=== PATIENT | female | born 1990 | race Caucasian/White ===

== ENCOUNTER 2022-07-11 18:56 | Inpatient (IN) | payer MEDICAID, OTHER, SELFPAY ==
[2022-07-11 19:39] VITALS: BMI 18.8
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
[2022-07-11 19:48] VITALS: BP 105/62; PULSE 72; RESP 16; TEMP 36.5; O2SAT 100
[2022-07-11 20:46] LABS: COVID-19 Test Negative (Negative)
[2022-07-11 22:00] VITALS: BP 99/55; PULSE 72; RESP 16; TEMP 37; O2SAT 97
--- NOTE | 2022-07-11 22:35 | MHC.CARE ---
BHN smart sheet completed
[2022-07-11 23:49] VITALS: BP 94/58; PULSE 84; RESP 17; TEMP 36.8; O2SAT 98
[2022-07-12 00:29] LABS: Appearance Urine Clear; Color Urine Yellow; Glucose Urine UA Negative (Negative); Leukocyte Esterase Urine Trace (Negative); Nitrite Urine Negative (Negative); PH 8.5 (5.0-9.0); Specific Gravity - Urine 1.015 (1.005-1.025); UMIC TRIGGER UA YES; Urine Blood Negative (Negative); Urine Ketones Negative (Negative); Urine Protein Negative (Neg-Trace)
[2022-07-12 00:31] LABS: UPreg QC Valid YES; Urine Pregnancy NEGATIVE (NEGATIVE)
[2022-07-12 00:33] VITALS: BP 95/44; PULSE 71; RESP 17; TEMP 36.9; O2SAT 98
[2022-07-12 00:34] LABS: Bacteria Urine None Seen (None Seen); Hyaline Casts Urine 0-2 /LPF (0-2); RBC Urine 0-2 /HPF (0-2); WBC Urine 0-5 /HPF (0-5)
[2022-07-12 00:45] LABS: Amphetamine Screen Urine Not Detected (Not Detect); Barbiturates, Urine Not Detected (Not Detect); Benzodiazepines Screen Urine Not Detected (Not Detect); Cannabinoid Screen Urine Not Detected (Not Detect); Cocaine Screen Urine POSITIVE (Not Detect); Fentanyl, urine Not Detected (Not Detect); Opiate Screen Urine Not Detected (Not Detect); Phencyclidine Screen Urine Not Detected (Not Detect)
--- NOTE | 2022-07-12 01:27 | PC.NURSE ---
Pt. sleeping in room, under no apparent distress.
--- NOTE | 2022-07-12 02:23 | PC.NURSE ---
Spoke Marisol HAND [facility]ING FORMER regarding changing time of Adderal XR to morning meds instead of daily at 0130
[2022-07-12 02:25] VITALS: BP 98/52; PULSE 61; RESP 18; TEMP 36.8; O2SAT 97
[2022-07-12 04:22] VITALS: BP 87/50; PULSE 71; RESP 18; TEMP 36.7; O2SAT 100
--- NOTE | 2022-07-12 05:48 | PC.NURSE ---
Pt. adderal XR was originally ordered for 01:30. Talked to provider about changing order to 09:00 to be given with other medications. Provider ok'd this change. Order was entered in error for 04:57. Med may be given at 09:00. Pt. currently sleeping in bed with 1:1 sitter present.
[2022-07-12 06:26] VITALS: BP 83/40; PULSE 58; RESP 17; TEMP 36.7; O2SAT 99
--- NOTE | 2022-07-12 08:21 | ECG_ITS ---
Test Reason : medical clearance,psych Blood Pressure : / mmHG Vent. Rate : 061 BPM Atrial Rate : 061 BPM P-R Int : 144 ms QRS Dur : 088 ms QT Int : 426 ms P-R-T Axes : 061 020 045 degrees QTc Int : 428 ms Normal sinus rhythm Normal ECG No previous ECGs available Referred By: Marisol Man Electronically Signed By:KATHY GONZALES
[2022-07-12 08:22] VITALS: BP 108/88; PULSE 63; RESP 14; TEMP 36.5; O2SAT 98
[2022-07-12 08:44] LABS: Eos%MD 4.2 %; Hematocrit 41.3 % (37.0-47.0); Hemoglobin 13.7 g/dl (12.0-16.0); Lymph%MD 54.9 %; Mean Corpuscular HGB Conc 33.2 g/dl (31.0-35.0); Mean Corpuscular Hemoglobin 28.7 pg (27.0-33.0); Mean Corpuscular Volume 86.4 fL (80.0-98.0); Mono%MD 6.6 %; Neut%MD 33.3 %; Platelet Count 297 X10*3/uL (160-400); Red Blood Count 4.78 X10*6/uL (4.20-5.50); Red Cell Distribution Width 12.8 % (11.0-16.0); White Blood Count 3.8 X10*3/uL (4.8-10.8)
[2022-07-12] MEDS: Dextroamphetamine/Amphetamine XR 10 MG CAP.ER.24H 30 MG PO (08:49)
[2022-07-12] MEDS: FLUoxetine HCl 10 MG CAPSULE PO (08:50)
[2022-07-12] MEDS: lamoTRIgine 100 MG TABLET PO (08:50)
[2022-07-12] MEDS: Buprenorphine/Naloxone 8/2 mg FILM 1 FILM SUBLINGUAL ×2 (08:50→19:20)
[2022-07-12] MEDS: clonazePAM 0.5 MG TABLET PO ×2 (09:03→16:29)
[2022-07-12 09:07] LABS: Band Neutrophils Percent 0 % (3-5); Eosinophils Absolute Manual 0.1 X10*3/uL (0.0-0.4); Eosinophils Percent Manual 3 % (0-4); Lymphocytes Absolute Manual 2.8 X10*3/uL (1.2-4.9); Lymphocytes Percent Manual 73 % (20-40); Monocytes Absolute Manual 0.1 X10*3/uL (0.1-1.2); Monocytes Percent Manual 3 % (2-11); Neutrophils Absolute Manual 0.8 X10*3/uL (2.0-8.3); Neutrophils Percent Manual 21 % (45-73)
[2022-07-12 09:08] LABS: Platelet Estimate NORMAL (NORMAL); Platelet Morphology Comment NORMAL; RBC Morphology NORMAL; Smudge Cells PRESENT
[2022-07-12 09:30] LABS: Alanine Aminotransferase 11 U/L (0-31); Albumin Level 4.3 g/dL (3.5-5.0); Alkaline Phosphatase 42 U/L (39-117); Anion Gap 16 (12-20); Aspartate Amino Transferase 21 U/L (5-31); Bilirubin Total 0.4 mg/dL (0.0-1.0); Blood Urea Nitrogen 9 mg/dL (9-16); Carbon Dioxide 25 mmol/L (22-29); Chloride 104 mmol/L (96-108); Estimated Glomerular Filt Rate > 60; Glucose Random 59 mg/dL (60-115); Potassium 3.8 mmol/L (3.3-5.1); Sodium 141 mmol/L (135-145); Total Protein 7.7 g/dL (6.5-8.0)
[2022-07-12 09:49] LABS: Glucose, Whole Blood 87 mg/dL (60-115)
[2022-07-12 10:30] LABS: Glucose, Whole Blood 109 mg/dL (60-115)
[2022-07-12] MEDS: Amphetamine Mixed Salts 20 MG TABLET PO (16:29)
[2022-07-12 18:00] VITALS: BP 117/76; PULSE 82; TEMP 36.7; O2SAT 100
[2022-07-12] MEDS: Buprenorphine/Naloxone 8/2 mg TAB.SUBL 1 TAB SUBLINGUAL (19:59)
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
[2022-07-13 06:00] VITALS: BP 110/66; PULSE 72; RESP 16; TEMP 36.5; O2SAT 98
[2022-07-13] MEDS: lamoTRIgine 100 MG TABLET PO (08:08)
[2022-07-13] MEDS: FLUoxetine HCl 10 MG CAPSULE PO (08:08)
[2022-07-13] MEDS: Buprenorphine/Naloxone 8/2 mg FILM 1 FILM SUBLINGUAL ×2 (08:16→17:56)
[2022-07-13] MEDS: clonazePAM 0.5 MG TABLET PO ×3 (08:31→21:53)
[2022-07-13 09:14] LABS: Estimated Average Glucose 100 mg/dL; Hemoglobin A1c % 5.1 %
[2022-07-13 09:20] LABS: Cholesterol 208 mg/dL; HDL Cholesterol 60 mg/dL; LDL Cholesterol Calculated 119 mg/dl; Magnesium 2.2 mg/dL (1.6-2.6); Triglycerides 146 mg/dL
[2022-07-13 09:41] LABS: Free T4 (Free Thyroxine) 1.17 ng/dL (0.71-1.85); Thyroid Stimulating Hormone 1.95 uIU/mL (0.32-4.0)
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
[2022-07-13] MEDS: Dextroamphetamine/Amphetamine XR 10 MG CAP.ER.24H 30 MG PO (10:17)
[2022-07-13 16:27] VITALS: BP 108/65; PULSE 76; RESP 16; TEMP 36.5; O2SAT 99
[2022-07-13] MEDS: Amphetamine Mixed Salts 20 MG TABLET PO (17:15)
[2022-07-13] MEDS: Lithium Carbonate ER 300 MG TABLET.ER PO (21:51)
[2022-07-13] MEDS: Prazosin HCL 1 MG CAPSULE PO (21:51)
[2022-07-14 07:00] VITALS: BMI 19.0
[2022-07-14] MEDS: lamoTRIgine 100 MG TABLET PO (09:06)
[2022-07-14] MEDS: FLUoxetine HCl 20 MG CAPSULE PO (09:07)
[2022-07-14] MEDS: Dextroamphetamine/Amphetamine XR 10 MG CAP.ER.24H 30 MG PO (09:07)
[2022-07-14 09:09] VITALS: BP 110/54; PULSE 70; RESP 16; TEMP 37.2; O2SAT 100
[2022-07-14] MEDS: Buprenorphine/Naloxone 8/2 mg FILM 1 FILM SUBLINGUAL ×2 (09:34→16:45)
[2022-07-14] MEDS: clonazePAM 0.5 MG TABLET PO ×3 (09:52→22:42)
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
[2022-07-14] MEDS: Amphetamine Mixed Salts 20 MG TABLET PO (16:43)
[2022-07-14] MEDS: Lithium Carbonate ER 300 MG TABLET.ER PO (22:43)
[2022-07-14] MEDS: Prazosin HCL 1 MG CAPSULE PO (22:43)
[2022-07-15 06:00] VITALS: BP 103/62; PULSE 82; RESP 16; TEMP 35.8; O2SAT 100
[2022-07-15] MEDS: Dextroamphetamine/Amphetamine XR 10 MG CAP.ER.24H 30 MG PO (09:07)
[2022-07-15] MEDS: FLUoxetine HCl 20 MG CAPSULE PO (09:07)
[2022-07-15] MEDS: lamoTRIgine 100 MG TABLET PO (09:07)
[2022-07-15] MEDS: clonazePAM 0.5 MG TABLET PO (09:31)
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
[2022-07-15] MEDS: Buprenorphine/Naloxone 8/2 mg FILM 1 FILM SUBLINGUAL (11:20)
== END 2022-07-15 13:54 | disposition home or self-care (01) | DRG 755 ==
LOC: HO.ED 07-12 15:07 → HO.PM5 07-12 16:20
PROVIDERS: Nurse Practitioner Family; Registered Nurse; Admitting Provider Psychiatry & Neurology Psychiatry; Emergency Provider Emergency Medicine; PCP Internal Medicine; Visit Provider Psychiatry & Neurology Psychiatry
DX: F43.25 Adjustment disorder with mixed disturbance of emotions and conduct (principal); R45.851 Suicidal ideations; F11.20 Opioid dependence, uncomplicated; F60.3 Borderline personality disorder; F14.10 Cocaine abuse, uncomplicated; F98.8 Other specified behavioral and emotional disorders with onset usually occurring in childhood and adolescence; F43.10 Post-traumatic stress disorder, unspecified; Z20.822 Contact with and (suspected) exposure to COVID-19; Z79.899 Other long term (current) drug therapy
CPT/HCPCS: 36415; 80053; 80061; 80307; 81001; 81025; 82947; 83036; 83735; 84439; 84443; 85007; 85027; 87635; 93005; 99285

== ENCOUNTER 2025-07-15 14:21 | Emergency (ER) | payer OTHER, SELFPAY ==
[2025-07-15 14:28] VITALS: BP 101/48; PULSE 79; RESP 18; TEMP 36.9; O2SAT 96; BMI 23.2
--- NOTE | 2025-07-15 14:40 | ED_ITS ---
HPI - Wound/Laceration General Chief Complaint: Wound/Laceration Stated Complaint: Infection R arm Related Data Home Medications ?Medication ?Instructions ?Recorded ?Confirmed clonazepam 0.5 mg tablet 1 tab PO TID PRN Anxiety 07/11/22 dextroamphetamine-amphetamine 20 1 tab PO DAILY@1400 0 07/11/22 07/12/22 mg tablet dextroamphetamine-amphetamine ER 1 cap PO QAM 07/11/22 07/11/22 30 mg 24hr capsule,extend release (Adderall XR) Previous Rx's ?Medication ?Instructions ?Recorded buprenorphine 8 mg-naloxone 2 mg 2 film sublingual AMAYA LY 3 days #3 07/15/22 sublingual film (Suboxone) ea fluoxetine 20 mg capsule 20 mg PO DAILY 30 days #30 c aps 07/15/22 lamotrigine 100 mg tablet 100 mg PO DAILY 30 days #30 tabs 07/15/22 lithium carbonate 300 mg 300 mg PO BEDTIME 30 days #3 0 tabs 07/15/22 tablet,extended release prazosin 1 mg capsule 1 mg PO BEDTIME 30 days #30 caps 07/15/22 Allergies Allergy/AdvReac Type Severity Reaction Status Date / Time latex Allergy Unknown Verified 07/15/25 14:31 tramadol Allergy Unknown Verified 07/15/25 14:31 [facility] Past Medical History Medical History (Updated 07/20/25 @ 16:16 by FLAKITO Rodriguez) Opioid dependence on agonist therapy Cocaine abuse Chronic post-traumatic stress disorder (PTSD) Adjustment disorder with mixed disturbance of emotions and conduct Bipolar disorder Social History Social History Household Members: Friend(s) Housing: Apartment Do you presently have visiting nurse or other home services: No Patient Tobacco Use Status: Never used Tobacco e-Cigarette/Vaping Use: Never Used Second Hand Smoke Exposure: Yes Substance Use Type: Crack/Cocaine and Heroin Advance Directives: No Advance Directives Information Provided: No Do you have a plan to hurt others: No Plan service: No Sexual orientation: Did not discuss Physical Exam Vital Signs: Vital Signs: Last Vital Signs Temp 98.4 F 07/15/25 14:28 Pulse 79 07/15/25 14:28 Resp 18 07/15/25 14:28 BP 101/48 L 07/15/25 14:28 Pulse Ox 96 07/15/25 14:28 O2 Del Method Room Air 07/15/25 14:28 BMI result Body Mass Index 23.2 Course Course Course Narrative: This is a Rapid Medical Examination (RME) performed by Lalitha Hernandez PA-C in [facility]. Full HPI, ROS, assessment and treatment plan per primary provider in the Main ED. Hx: 34 yo F hx IVDU, MRSA here for eval of wound to the back of her right upper arm x2-3 weeks. believes it may have started as a spider bite but did not see anything bite her. seen at walk in, completed a course of abx, no improvement. reports the blister popped and now there is a hole in my arm . subjective fevers. hx ivdu - last injected early this year . PE/vitals: see photo below. Plan: labs Reevaluation(s) Reevaluation #1: Patient left the emergency department before myself or any of the other clinicians could review or explain physical exam findings, test results, need or lack there of for additional testing, treatment options, or a treatment plan. Discharge Plan Discharge Clinical Impression: Wound of skin Patient Disposition: Left W/O Completing Treatment Prescriptions: No Action clonazepam 0.5 mg tablet 1 tab PO TID PRN (Reason: Anxiety) dextroamphetamine-amphetamine 20 mg tablet 1 tab PO DAILY@1400 dextroamphetamine-amphetamine [Adderall XR] 30 mg capsule,extended release 24hr 1 cap PO QAM prazosin 1 mg Capsule 1 mg PO BEDTIME 30 Days Qty: 30 0RF Protocol: Hold for SBP< HOLD for SBP < : 90 fluoxetine 20 mg Capsule 20 mg PO DAILY 30 Days Qty: 30 0RF lithium carbonate 300 mg Tablet Extended Release 300 mg PO BEDTIME 30 Days Qty: 30 0RF lamotrigine 100 mg tablet 100 mg PO DAILY 30 Days Qty: 30 0RF buprenorphine-naloxone [Suboxone] 8-2 mg Film 2 film sublingual DAILY 3 Days Qty: 3 0RF Discharge Date/Time: 07/15/25 21:17
== END 2025-07-15 21:17 | disposition left against medical advice (07) ==
LOC: HO.ED 21:12
PROVIDERS: Emergency Provider Emergency Medicine; PCP Physician Assistant
DX: S41.111A Laceration without foreign body of right upper arm, initial encounter (principal); X58.XXXA Exposure to other specified factors, initial encounter; Y93.9 Activity, unspecified; Y92.9 Unspecified place or not applicable; Y99.9 Unspecified external cause status; F11.20 Opioid dependence, uncomplicated; F14.10 Cocaine abuse, uncomplicated; F43.10 Post-traumatic stress disorder, unspecified
CPT/HCPCS: 99281